=== PATIENT | male | born 1990 | race Caucasian/White ===

== ENCOUNTER 2018-03-23 09:56 | Emergency (ER) | payer MEDICAID ==
[~2018-03-23] VITALS: Ht 185.4 cm; Wt 71.4 kg
[~2018-03-23 09:56] MED LIST: DOXY-11 PO
[2018-03-23 09:58] VITALS: BP 120/75
[2018-03-23] MEDS ORDERED: LIDOcaine 1% 30ml preserv. free vial IJ ONE (10:05)
[2018-03-23] MEDS ORDERED: TETanus/Pertussis (Acell)/Diphther VAC/PF (Tdap-Adult) 0.5ml syringe IMVAC ONE (10:05)
== END 2018-03-23 11:17 | disposition home or self-care (01) ==
LOC: ER 09:56
DX: S61.512A Laceration without foreign body of left wrist, initial encounter (principal); F12.90 Cannabis use, unspecified, uncomplicated; Z79.899 Other long term (current) drug therapy; W26.8XXA Contact with other sharp object(s), not elsewhere classified, initial encounter; Y93.89 Activity, other specified; Y92.89 Other specified places as the place of occurrence of the external cause; Y99.8 Other external cause status
CPT/HCPCS: 12002; 90471; 90715; 99283; A6255; A6449; J3490

== ENCOUNTER 2019-10-03 09:09 | Emergency (ER) | payer MEDICAID ==
[~2019-10-03] VITALS: Ht 185.4 cm; Wt 72.7 kg
[2019-10-03] MEDS ORDERED: HYDROcodone/acetaminophen 5mg/325mg tablet PO ONE (10:15)
[2019-10-03] MEDS ORDERED: ondansetron 4mg rapidly disintigrating tab PO ONE (10:15)
[2019-10-03] MEDS ORDERED: HYDR-3965 PO (10:31)
[2019-10-03 12:40] VITALS: BP 138/76
== END 2019-10-03 12:47 | disposition home or self-care (01) ==
LOC: ER 09:10
DX: S92.001A Unspecified fracture of right calcaneus, initial encounter for closed fracture (principal); S52.132A Displaced fracture of neck of left radius, initial encounter for closed fracture; F12.90 Cannabis use, unspecified, uncomplicated; Z79.899 Other long term (current) drug therapy; W10.8XXA Fall (on) (from) other stairs and steps, initial encounter; Y93.89 Activity, other specified; Y92.89 Other specified places as the place of occurrence of the external cause; Y99.8 Other external cause status
CPT/HCPCS: 29105; 29515; 73090; 73610; 99284

== ENCOUNTER 2022-02-24 07:49 | Emergency (ER) | payer MEDICAID ==
[~2022-02-24] VITALS: Ht 182.9 cm; Wt 77.3 kg
[2022-02-24 08:27] VITALS: BP 126/81
[2022-02-24] MEDS ORDERED: AMOX-101 PO (10:42)
== END 2022-02-24 10:50 | disposition home or self-care (01) ==
LOC: ER 07:50
DX: K08.89 Other specified disorders of teeth and supporting structures (principal); R22.0 Localized swelling, mass and lump, head; F12.10 Cannabis abuse, uncomplicated; Z87.81 Personal history of (healed) traumatic fracture
CPT/HCPCS: 99283

== ENCOUNTER 2022-10-12 19:05 | Emergency (ER) | payer MEDICAID ==
[~2022-10-12] VITALS: Ht 185.4 cm; Wt 75.0 kg
[2022-10-12 19:09] VITALS: BP 148/84
[2022-10-12] MEDS ORDERED: HYDROcodone/acetaminophen 10/325mg tab PO ONE (20:50)
[2022-10-12] MEDS ORDERED: TRAM50TA2 PO (20:50)
[2022-10-12] MEDS ORDERED: AMOX-580 PO (20:50)
[2022-10-12] MEDS ORDERED: amox tr/potassium clavulanate 875/125mg TAB PO ONE (20:50)
== END 2022-10-12 21:10 | disposition home or self-care (01) ==
LOC: ER 19:06
DX: K04.7 Periapical abscess without sinus (principal); F12.90 Cannabis use, unspecified, uncomplicated
CPT/HCPCS: 99283

== ENCOUNTER 2023-04-01 19:46 | Emergency (ER) | payer MEDICAID ==
[~2023-04-01] VITALS: Ht 185.4 cm; Wt 80.0 kg
[2023-04-01 20:01] VITALS: BP 144/100
[2023-04-01] MEDS ORDERED: IBUP-1986 PO (21:55)
[2023-04-01] MEDS ORDERED: AMOX-117 PO (21:55)
== END 2023-04-01 22:02 | disposition home or self-care (01) ==
LOC: ER 19:47
DX: K04.7 Periapical abscess without sinus (principal); F12.90 Cannabis use, unspecified, uncomplicated
CPT/HCPCS: 99283

== ENCOUNTER 2023-04-20 17:42 | Emergency (ER) | payer MEDICAID ==
[~2023-04-20] VITALS: Ht 185.4 cm; Wt 63.2 kg
[~2023-04-20 17:42] MED LIST changes: +IBUP-1986 PO
[2023-04-20 18:02] VITALS: BP 127/95
[2023-04-20 18:37] LABS: BASOPHILS % (AUTO) 0.4 % (0-1); EOSINOPHILS # (AUTO) 0.1 X10'3 (0-0.9); HEMATOCRIT 48.5 % (42.0-52.0); LYMPHOCYTES # (AUTO) 2.2 X10'3 (1.1-4.8); LYMPHOCYTES % (AUTO) 20.2 % (21-51); MEAN CORPUSCULAR HEMOGLOBIN 30.3 PG (27.0-31.0); MEAN CORPUSCULAR HGB CONC 33.1 g/dL (33.0-36.5); MEAN CORPUSCULAR VOLUME 91.5 FL (78-98); MEAN PLATELET VOLUME 7.6 FL (7.4-10.4); MONOCYTES # (AUTO) 0.9 X10'3 (0-0.9); MONOCYTES % (AUTO) 8.3 % (2-12); NEUTROPHILS # (AUTO) 7.8 X10'3 (1.8-7.7); NEUTROPHILS % (AUTO) 70.1 % (42-75); PLATELET COUNT 287 X10'3 (140-440); RED CELL DISTRIBUTION WIDTH 12.8 % (11.5-14.5); WHITE BLOOD COUNT 11.1 X10'3 (4.5-11.0)
[2023-04-20 18:56] LABS: ALANINE AMINOTRANSFERASE 26 U/L (12-78); ALBUMIN/GLOBULIN RATIO 1.1 (1.1-1.5); ALKALINE PHOSPHATASE 71 IU/L (46-116); ANION GAP 10 (8-16); ASPARTATE AMINO TRANSFERASE 15 U/L (10-37); BILIRUBIN,TOTAL 0.8 MG/DL (0.1-1.0); BLOOD UREA NITROGEN 17 MG/DL (7-18); BUN/CREATININE RATIO 18.7 (10.0-20.0); CALCIUM 9.4 MG/DL (8.5-10.1); CHLORIDE 100 MMOL/L (99-107); CREATININE 0.91 MG/DL (0.60-1.10); GLUCOSE 111 MG/DL (70-104); LIPASE 68 U/L (73-393); POTASSIUM 3.8 MMOL/L (3.5-5.1); SODIUM 138 MMOL/L (135-145); TOTAL CARBON DIOXIDE 27.8 MMOL/L (24-32); TOTAL PROTEIN 7.6 G/DL (6.4-8.2); eGFR > 90 ML/MIN
[2023-04-20 19:19] LABS: CLARITY,URINE CLOUDY (Clear); COLOR,URINE YELLOW (Yellow); GLUCOSE, URINE NEGATIVE (Neg); KETONES,URINE TRACE mg/dl (Neg); LEUKOCYTE ESTERASE ,URINE NEGATIVE (Neg); NITRITES, URINE NEGATIVE (Neg); OCCULT BLOOD,URINE NEGATIVE (Neg); PROTEIN,URINE NEGATIVE (Neg)
[2023-04-20 19:27] LABS: UA COLLECTION TYPE CLN CATCH MIDSTREAM
[2023-04-20 19:28] LABS: SQUAMOUS EPITHELIAL CELL,UR FEW /LPF (FEW)
[2023-04-20 19:30] LABS: AMORPHOUS PHOSPHATES 4+; BACTERIA,URINE NONE SEEN /HPF (Neg); RBC,URINE 0-2 /HPF (0-2); WBC,URINE 0-4 /HPF (0-4)
[2023-04-20 19:31] LABS: MUCUS STRANDS FEW /LPF (Neg)
[2023-04-20] MEDS ORDERED: famotidine 20mg tablet PO ONE (20:10)
[2023-04-20] MEDS ORDERED: ondansetron 4mg rapidly disintigrating tab PO ONE (20:10)
[2023-04-20] MEDS ORDERED: ONDA4TAB12 PO (20:10)
--- NOTE | 2023-04-20 20:20 | NUR ---
Patient was not in lobby when called back for medication and discharge.
== END 2023-04-20 20:34 | disposition home or self-care (01) ==
LOC: ER 17:43
DX: K52.9 Noninfective gastroenteritis and colitis, unspecified (principal); F12.90 Cannabis use, unspecified, uncomplicated
CPT/HCPCS: 36415; 80053; 81001; 83690; 85025; 99283

== ENCOUNTER 2023-10-30 12:21 | Emergency (ER) | payer MEDICAID, OTHER ==
[~2023-10-30] VITALS: Ht 185.4 cm; Wt 71.4 kg
[~2023-10-30 12:21] MED LIST changes: +ONDA4TAB12 PO
[2023-10-30 12:31] VITALS: TEMP 97.9
[2023-10-30] MEDS ORDERED: LIDOcaine 1% W/epiNEPHrine 1:100,000 20ml vial SQ ONE (13:50)
[2023-10-30] MEDS ORDERED: LIDOCAINE 1%/EPI 1:100,000 inj. 10 ML multi-dose vial SQ ONE (14:00)
[2023-10-30] MEDS ORDERED: TETanus/Pertussis (Acell)/Diphther VAC/PF (Tdap-Adult) 0.5ml syringe IMVAC ONE (15:20)
[2023-10-30 15:36] VITALS: BP 130/86; PULSE 87; RESP 17; O2SAT 99
== END 2023-10-30 15:42 | disposition home or self-care (01) ==
LOC: ER 12:22
DX: S61.411A Laceration without foreign body of right hand, initial encounter (principal); F17.200 Nicotine dependence, unspecified, uncomplicated; F12.90 Cannabis use, unspecified, uncomplicated; W26.8XXA Contact with other sharp object(s), not elsewhere classified, initial encounter; Y93.89 Activity, other specified; Y92.89 Other specified places as the place of occurrence of the external cause; Y99.8 Other external cause status
CPT/HCPCS: 12004; 73130; 90471; 90715; 99283; J7030; A6449

== ENCOUNTER 2024-03-23 15:56 | Emergency (ER) | payer MEDICAID, OTHER ==
[~2024-03-23] VITALS: Ht 185.4 cm; Wt 70.5 kg
[2024-03-23] MEDS: dexamethasone sod phosphate 10mg/ml inj IM STA (16:34)
[2024-03-23] MEDS: cyclobenzaprine 10mg tablet PO ONE (16:34)
[2024-03-23] MEDS: LIDOcaine 5% patch TP ONE (16:35)
[2024-03-23] MEDS: ketorolac tromethamine 15mg/ml inj. IM ONE (16:35)
[2024-03-23] MEDS ORDERED: LIDO700A32 TOP (17:36)
[2024-03-23] MEDS ORDERED: PRED20TA PO (17:36)
[2024-03-23] MEDS ORDERED: CYCL-1 PO (17:36)
[2024-03-23 17:44] VITALS: BP 118/62; PULSE 70; RESP 16; TEMP 98.2; O2SAT 97
== END 2024-03-23 17:45 | disposition home or self-care (01) ==
LOC: ER 15:56
DX: S39.012A Strain of muscle, fascia and tendon of lower back, initial encounter (principal); M54.42 Lumbago with sciatica, left side; F12.90 Cannabis use, unspecified, uncomplicated; Z79.899 Other long term (current) drug therapy; Z79.1 Long term (current) use of non-steroidal anti-inflammatories (NSAID); X58.XXXA Exposure to other specified factors, initial encounter; Y93.89 Activity, other specified; Y92.89 Other specified places as the place of occurrence of the external cause; Y99.8 Other external cause status
CPT/HCPCS: 72100; 96372; 99284; J1100; J1885

== ENCOUNTER 2024-04-05 16:32 | Emergency (ER) | payer MEDICAID ==
[~2024-04-05] VITALS: Ht 185.4 cm; Wt 61.0 kg
[~2024-04-05 16:32] MED LIST changes: +CYCL-1 PO; +LIDO700A32 TOP
[2024-04-05 17:15] VITALS: BP 136/92; PULSE 74; RESP 18; TEMP 98.2; O2SAT 96
[2024-04-05] MEDS ORDERED: GABA300C PO (17:43)
[2024-04-05] MEDS ORDERED: PRED20TA PO (17:43)
[2024-04-05] MEDS: dexamethasone sod phosphate 10mg/ml inj IM STA (17:57)
== END 2024-04-05 18:27 | disposition home or self-care (01) ==
LOC: ER 16:32
DX: M54.32 Sciatica, left side (principal); F12.90 Cannabis use, unspecified, uncomplicated; Z79.899 Other long term (current) drug therapy; Z79.1 Long term (current) use of non-steroidal anti-inflammatories (NSAID); Z79.2 Long term (current) use of antibiotics
CPT/HCPCS: 96372; 99283; J1100